=== PATIENT | female | born 1975 | race Caucasian/White ===

== ENCOUNTER → 2021-02-02 | Outpatient (CLI) | payer BC ==
[~2021-02-02] MED LIST: LISINOPRIL10 MG PO; TAPAZOLE10 MG PO
[2021-02-02 10:49] LABS: HEMOGLOBIN 14.2 gm/dl (12.3-15.3); RED BLOOD COUNT 4.27 M/UL (4.00-5.10)
== END ==
LOC: OPSV2 09:00
PROVIDERS: Obstetrics & Gynecology
DX: Z01.818 Encounter for other preprocedural examination (principal); N81.10 Cystocele, unspecified
CPT/HCPCS: 36415; 80053; 81001; 85025; 93005

== ENCOUNTER → 2021-02-04 | Day surgery (SDC) | payer BC ==
[~2021-02-04] MED LIST changes: +HYDROCODON-ACE1 EAC2 PO; +NAPROSYN EC 50500 MG PO; +POLYETHYLENE G500 G3 MC; +POLYETHYLENE G500 GM MC; +ZOFRAN 4 MG TAB4 MG PO
== END | disposition home or self-care (01) ==
LOC: OR 05:45
DX: N80.0 Endometriosis of uterus (principal); N72 Inflammatory disease of cervix uteri; N88.8 Other specified noninflammatory disorders of cervix uteri; N81.2 Incomplete uterovaginal prolapse; N81.82 Incompetence or weakening of pubocervical tissue; N81.89 Other female genital prolapse; N39.3 Stress incontinence (female) (male); E05.00 Thyrotoxicosis with diffuse goiter without thyrotoxic crisis or storm; I10 Essential (primary) hypertension; F41.9 Anxiety disorder, unspecified; F32.9 Major depressive disorder, single episode, unspecified; Z87.891 Personal history of nicotine dependence; Z79.899 Other long term (current) drug therapy; Z20.822 Contact with and (suspected) exposure to COVID-19
CPT/HCPCS: 84703; C1769; C1771; J0690; J1100; J1170; J1885; J2001; J2250; J2270; J2405; J2704; J2710; J2795; J3010; J7120